=== PATIENT | male | born 1945 | race Caucasian/White ===

== ENCOUNTER 2018-03-03 10:48 | Day surgery (SDC) | payer MEDICARE, BC, OTHER ==
[~2018-03-03 10:48] MED LIST: FENTANYL 100MCG/2ML SOL ONE; LIDOCAINE HCL 1% MPF 30 SOL ONE; PROPOFOL 500 MG/50 ML EMU IV ONE
[2018-03-03 12:23] VITALS: PULSE 54
[2018-03-03 12:46] VITALS: BP 125/89; RESP 18; TEMP 97.4; O2SAT 94
== END 2018-03-03 13:08 | disposition home or self-care (01) | DRG 951 ==
LOC: SURG 10:48
PROVIDERS: ATTEND Surgery
DX: Z12.11 Encounter for screening for malignant neoplasm of colon (principal); D50.9 Iron deficiency anemia, unspecified
CPT/HCPCS: 43235; G0121; J3010; J2001; J2704

== ENCOUNTER 2019-02-03 10:38 | Day surgery (SDC) | payer OTHER ==
[2019-02-03 11:17] VITALS: TEMP 97.8
[2019-02-03] MEDS: TROPICAMIDE 1% OPHTH SOL ONE ×3 (11:20→11:26)
[2019-02-03] MEDS: PHENYLEPHRINE HCL 10% OPHTHAL SOL ONE ×3 (11:20→11:26)
[2019-02-03] MEDS: CYCLOPENTOLATE 1% SOL ONE ×3 (11:20→11:26)
[2019-02-03] MEDS ORDERED: MOXIFLOXACIN-HOME SOL RIGHTEYE ONE ×2 (11:21→11:24)
[2019-02-03] MEDS ORDERED: KETOROLAC/HOME 0.5% SOL RIGHTEYE ONE ×3 (11:21→11:27)
[2019-02-03] MEDS: TETRACAINE HCL 0.5 % 1 DROP SOL ONE ×2 (11:27→13:10)
[2019-02-03] MEDS ORDERED: MIDAZOLAM 2 MG/2 ML SOL ONE (12:16)
[2019-02-03] MEDS ORDERED: FENTANYL 100MCG/2ML SOL ONE (12:17)
[2019-02-03] MEDS ORDERED: BSS W/ 0.5 MG P.F. EPI 1 BOTTLE ONE (13:05)
[2019-02-03] MEDS ORDERED: POVIDONE IODINE 5% SOL ONE (13:05)
[2019-02-03] MEDS ORDERED: LIDOCAINE HCL 2% MPF 10 ML SOL ONE (13:05)
[2019-02-03] MEDS ORDERED: ACETAZOLAMIDE 250 MG PO ONE ×2 (13:12→13:40)
[2019-02-03 13:33] VITALS: BP 133/88; PULSE 61; RESP 20; O2SAT 97
== END 2019-02-03 13:55 | disposition home or self-care (01) | DRG 125 ==
LOC: SURG 10:38
PROVIDERS: ATTEND Ophthalmology
DX: H25.89 Other age-related cataract (principal)
CPT/HCPCS: J2250; J3010; A9270-GY

== ENCOUNTER 2019-03-03 10:27 | Day surgery (SDC) | payer OTHER ==
[2019-03-03] MEDS ORDERED: KETOROLAC 0.5% OPTH 60 DROP SOL ONE (10:34)
[2019-03-03] MEDS: PHENYLEPHRINE HCL 10% OPHTHAL SOL ONE ×3 (10:45→10:57)
[2019-03-03] MEDS: CYCLOPENTOLATE 1% SOL ONE ×3 (10:45→10:57)
[2019-03-03] MEDS ORDERED: KETOROLAC/HOME 0.5% SOL LEFTEYE ONE ×3 (10:46→10:58)
[2019-03-03] MEDS ORDERED: MOXIFLOXACIN-HOME SOL LEFTEYE ONE ×2 (10:46→10:51)
[2019-03-03] MEDS: TROPICAMIDE 1% OPHTH SOL ONE ×3 (10:46→10:58)
[2019-03-03] MEDS: TETRACAINE HCL 0.5 % 1 DROP SOL ONE ×2 (10:59→12:07)
[2019-03-03] MEDS ORDERED: MIDAZOLAM 2 MG/2 ML SOL ONE (11:06)
[2019-03-03] MEDS ORDERED: LIDOCAINE HCL 2% MPF 10 ML SOL ONE (11:30)
[2019-03-03] MEDS ORDERED: BSS W/ 0.5 MG P.F. EPI 1 BOTTLE ONE (11:30)
[2019-03-03] MEDS ORDERED: POVIDONE IODINE 5% SOL ONE (11:30)
[2019-03-03 12:30] VITALS: BP 121/74; PULSE 68; RESP 20; TEMP 97.8; O2SAT 97
[2019-03-03] MEDS ORDERED: ACETAZOLAMIDE 500 MG CER PO ONE (13:10)
== END 2019-03-03 12:43 | disposition home or self-care (01) | DRG 125 ==
LOC: SURG 10:27
PROVIDERS: ATTEND Ophthalmology
DX: H25.89 Other age-related cataract (principal)
CPT/HCPCS: J2250; A9270-GY